=== PATIENT | male | born 1955 | race Caucasian/White ===

== ENCOUNTER → 2019-04-14 10:27 | Outpatient (CLI) | payer BC, SELFPAY ==
[2019-04-14 10:54] LABS: Basophils % 0.5 % (0.1-2.0); Eosinophils # 0.2 K/mm3 (0.0-0.4); Eosinophils % 2.8 % (0.1-12.0); Hemoglobin 15.8 g/dL (14.1-18.0); Lymphocytes # 1.6 K/mm3 (0.7-4.5); Lymphocytes % 25.1 % (10-50); Mean Corpuscular Hemoglobin 30.7 pg (27.0-31.2); Mean Platelet Volume 9.6 fl (7.4-10.4); Monocytes # 0.3 K/mm3 (0.1-1.0); Neutrophils # 4.1 K/mm3 (1.8-7.8); Neutrophils % 66.7 % (37.0-80.0); Platelet Count 146 K/mm3 (142-424); Red Blood Count 5.16 M/mm3 (4.60-6.20); Red Cell Distribution Width 13.6 % (11.5-17.5); White Blood Count 6.2 K/mm3 (4.8-10.8)
[2019-04-14 13:18] LABS: Alanine Aminotransferase 26 U/L (12-78); Albumin Level 3.9 gm/dL (3.4-5.0); Albumin/Globulin Ratio 1.1 (1.1-1.8); Alkaline Phosphatase 143 U/L (46-116); Anion Gap 10.9 mEq/L (5-15); Aspartate Amino Transferase 16 U/L (15-37); Bilirubin,Total 0.6 mg/dL (0.2-1.0); Blood Urea Nitrogen 20 mg/dL (7-18); Calcium 8.5 mg/dL (8.5-10.1); Carbon Dioxide 28 mmol/L (21.0-32.0); Chloride 104 mmol/L (98-107); Cholesterol 120 mg/dL (140-200); Creatinine,Serum 1.62 mg/dL (0.70-1.30); Estimated Glomerular Filt Rate 43 ml/min (>60); GFR (African American) 53 ML/MIN (>60); Globulin 3.7 gm/dl (1.3-3.2); Glucose 91 mg/dL (74-106); HDL Cholesterol 24 mg/dL (27-67); LDL Cholesterol 54 mg/dL (0-130); Potassium 4.9 mmoL/L (3.5-5.1); Prostate Specific Ag Screen 1.7 ng/mL (0.0-4.0); Sodium 138 mmol/L (136-145); Thyroid Stimulating Hormone 2.08 uIU/ml (0.358-3.740); Total Protein,Serum 7.6 gm/dL (6.4-8.2); Triglycerides 212 mg/dL (30-200); VLDL Cholesterol 42 mg/dL (0-40)
[2019-04-15 08:19] LABS: Vitamin B12 757 pg/mL (232-1245); Vitamin D 25 Hydroxy 34.1 ng/mL (30.0-100.0)
== END ==
PROVIDERS: Visit Provider Nurse Practitioner Family
DX: Z00.00 Encounter for general adult medical examination without abnormal findings (principal); R31.9 Hematuria, unspecified; E78.1 Pure hyperglyceridemia; E53.8 Deficiency of other specified B group vitamins; Z86.39 Personal history of other endocrine, nutritional and metabolic disease
CPT/HCPCS: 36415; 80053; 80061; 82607; 82652; 84443; 85025; G0103

== ENCOUNTER → 2019-07-15 12:39 | Outpatient (CLI) | payer BC, SELFPAY ==
--- NOTE | 2019-07-15 12:44 | US_ITS ---
PROCEDURE: US KIDNEY CLINICAL INDICATION: RENAL INSUFFICIENCY Microscopic hematuria COMPARISON: No exams were available for comparison FINDINGS: The right kidney is [id number]. No hydronephrosis, cortical thinning, or renal mass or perinephric fluid collection is evident. The left kidney is [id number]. There is mild left hydronephrosis with cortical thinning of the left kidney. Hyperechoic foci noted in the mid lower pole on the consistent nephrolithiasis IMPRESSION: Mild left hydronephrosis with nephrolithiasis. The left ureter is not identified and may be better evaluated with CT if clinically warranted Dictated by: Lobito Ochoa MD 07/15/2019 18:11 Electronically signed by Lobito Ochoa MD in [facility] 07/15/2019 18:11
== END ==
PROVIDERS: PCP Internal Medicine Adolescent Medicine; Visit Provider Nurse Practitioner Family
DX: N28.9 Disorder of kidney and ureter, unspecified (principal)
CPT/HCPCS: 76770

== ENCOUNTER 2019-11-24 09:26 | Emergency (ER) | payer BC, SELFPAY ==
[2019-11-24 09:29] VITALS: BP 157/73; PULSE 101; RESP 18; TEMP 38.7; O2SAT 90; BMI 25.8
[2019-11-24 09:51] VITALS: BMI 25.8
--- NOTE | 2019-11-24 09:52 | XR_ITS ---
PROCEDURE: XR CHEST PORTABLE CLINICAL HISTORY: WEAKNESS, FEVER COMPARISON: No exams were available for comparison FINDINGS: The cardiomediastinal silhouette and pulmonary vascularity are within normal limits. The lungs are clear without infiltrates, suspicious nodules, or pleural effusions. There is a right IJ MediPort catheter present with tip in the region of the SVC. No acute bony findings. IMPRESSION: No acute findings. Dictated by: Lobito Ochoa MD 11/24/2019 10:43 Electronically signed by Lobito Ochoa MD in [facility] 11/24/2019 10:43
--- NOTE | 2019-11-24 09:54 | [facility].EDGENADL ---
ED Disposition Clinical Impression: Fever Qualifiers: Fever type: unspecified Qualified Code(s): R50.9 - Fever, unspecified Altered mental status Qualifiers: Altered mental status type: somnolence Qualified Code(s): R40.0 - Somnolence Disposition: Home, Self-Care Condition on Discharge: Fair Instructions: DI for Fever (Symptom) -- Adult Additional Instructions: Stop 50 mcg fentanyl patch. Levaquin as prescribed. Continue Tylenol for fever. See Dr. Beyer in the office at next scheduled appointment. Return to the emergency room if worsening symptoms. Prescriptions: levoFLOXacin [Levaquin 500mg tab] 500 mg PO DAILY #10 tab Prescription Printed Referrals: Matt Pruitt MD [Primary Care Provider] - - Critical Care Critical Care Time: No Attestation: On 11/24/19, the high probability of a clinically significant, sudden or life threatening deterioration of the following system(s) required my full and direct attention, intervention and personal management. The time I documented below is in addition to time spent performing reported procedures but includes the following listed in this critical care notation. Medical Decision Making - Karl Inquiry Pt receiving controlled substance: No Vital Signs: 11/24/19 09:29 11/24/19 10:34 11/24/19 10:58 Temperature 101.7 F H 101.2 F H Temperature Source Oral Oral Pulse Rate [Left Radial] 101 H 100 H Respiratory Rate 18 Blood Pressure [Right Arm] 157/73 H 137/87 122/78 Blood Pressure Mean [Right Arm] 101 103 92 Blood Pressure Position [Right Arm] Sitting Sitting 02 Sat by Pulse Oximetry 90 L 98 Oxygen Delivery Method Room Air Nasal Cannula Oxygen Flow Rate (LPM) 2 - Lab Data Lab Results 11/24/19 09:45: WBC 2.8 L, RBC 4.07 L, Hgb 11.7 L, Hct 35.1 L, MCV 86.2, MCH 28.7, MCHC 33.2, RDW 14.2, Plt Count 379, MPV 7.6, Neut % (Auto) 71.0, Lymph % (Auto) 21.2, [place] % (Auto) 6.0, Eos % (Auto) 1.0, Baso % (Auto) 0.8, Neut # (Auto) 2.0, Lymph # (Auto) 0.6 L, [place] # (Auto) 0.2, Eos # (Auto) 0.0, Baso # (Auto) 0.0 11/24/19 09:45: Sodium 138, Potassium 4.7, Chloride 104, Carbon Dioxide 27, Anion Gap 11.7, BUN 32 H, Creatinine 1.50 H, Estimated Creat Clear 59, Estimated GFR 47 L, Est GFR ( Amer) 57 L, Glucose 112 H, Calcium 8.7, Troponin I 0.05 H 11/24/19 09:45: Lactate 1.5 11/24/19 09:45: Total Bilirubin 0.5, Direct Bilirubin 0.2, Conjugated Bilirubin 0.0, Indirect Bilirubin 0.3, Unconjugated Bilirubin 0.2, AST 26, ALT 23, Alkaline Phosphatase 264 H, Total Protein 7.4, Albumin 3.7 11/24/19 10:27: Urine Color Dk yellow, Urine Appearance Clear, Urine pH 5.5, Ur Specific [place] >= 1.030, Urine Protein Negative, Urine Glucose (UA) Negative, Urine Ketones Negative, Urine Blood Trace-i, Urine Nitrate Negative, Urine Bilirubin Negative, Urine Urobilinogen 0.2, Ur Leukocyte Esterase Negative, Urine RBC 5-10, Urine WBC 5-10, Ur Squamous Epith Cells Occasional, Urine Bacteria Trace, Hyaline Casts Occasional, Urine Mucus 1+ Result diagrams: 11/24/19 09:45 11/24/19 09:45 Orders (Tests/Meds): ED MEDICATIONS Generic Name Dose Route Start Last Admin Trade Name Freq PRN Reason Stop Dose Admin Levofloxacin/Dextrose 500 mg in 100 mls @ 100 mls/hr 11/24/19 11:35 Levaquin 500mg/100ml Premix IV 11/24/19 12:34 ONCE ONE Protocol Discontinued Medications Generic Name Dose Route Start Last Admin Trade Name Freq PRN Reason Stop Dose Admin Acetaminophen 1,000 mg 11/24/19 09:56 11/24/19 10:04 Tylenol 500mg Tablet PO 11/24/19 09:57 1,000 mg ONCE ONE Administration Sodium Chloride 1,000 mls @ 999 mls/hr 11/24/19 10:00 11/24/19 10:03 Sod Chlor 0.9% 1000ml Bag IV 11/24/19 11:00 999 mls/hr .Q1H1M STEVEN Administration Ondansetron HCl 4 mg 11/24/19 09:56 11/24/19 10:03 Zofran 4mg/2ml Vial IV 11/24/19 09:57 4 mg ONCE ONE Administration ORDERS Category Date Time Status SARS-CoV-2, ASH[facility] Stat Lab 11/24/19 11:11 Ordered
[2019-11-24 10:06] LABS: Basophils % 0.8 % (0.1-2.0); Chloride 104 mmol/L (98-107); Hematocrit 35.1 % (42.0-52.0); Hemoglobin 11.7 g/dL (14.1-18.0); Lymphocytes # 0.6 K/mm3 (0.7-4.5); Lymphocytes % 21.2 % (10-50); Mean Corpuscular HGB Conc 33.2 g/dL (31.8-35.4); Mean Corpuscular Hemoglobin 28.7 pg (27.0-31.2); Mean Corpuscular Volume 86.2 fl (80-94); Mean Platelet Volume 7.6 fl (7.4-10.4); Monocytes # 0.2 K/mm3 (0.1-1.0); Platelet Count 379 K/mm3 (142-424); Potassium 4.7 mmoL/L (3.5-5.1); Red Blood Count 4.07 M/mm3 (4.60-6.20); Red Cell Distribution Width 14.2 % (11.5-17.5); Sodium 138 mmol/L (136-145); White Blood Count 2.8 K/mm3 (4.8-10.8)
[2019-11-24 10:08] LABS: Bilirubin,Unconjugated 0.2 mg/dL (0.0-1.1)
[2019-11-24 10:09] LABS: Alanine Aminotransferase 23 U/L (12-78); Albumin Level 3.7 g/dl (3.5-5.0); Alkaline Phosphatase 264 U/L (38-126); Anion Gap 11.7 mEq/L (5-15); Aspartate Amino Transferase 26 U/L (17-59); Bilirubin,Direct 0.2 mg/dl (0.0-0.4); Bilirubin,Indirect 0.3 mg/dL (0.0-0.9); Bilirubin,Total 0.5 mg/dl (0.2-1.3); Blood Urea Nitrogen 32 mg/dl (9-20); Carbon Dioxide 27 mmol/L (22.0-30.0); Creatinine Clearance Estimated 59 mL/min (50-200); Estimated Glomerular Filt Rate 47 ml/min (>60); GFR (African American) 57 ML/MIN (>60); Total Protein,Serum 7.4 g/dl (6.3-8.2)
[2019-11-24 10:10] LABS: Calcium 8.7 mg/dl (8.4-10.2); Glucose 112 mg/dl (74-100); Lactic Acid 1.5 mmol/L (0.7-2.1)
--- NOTE | 2019-11-24 10:13 | CT_ITS ---
PROCEDURE: CT HEAD/BRAIN WO CON CLINICAL INDICATION: AMS Altered mental status, altered level of consciousness, confusion, disorientation COMPARISON: No exams were available for comparison TECHNIQUE: Axial images obtained. All CT scans at the facility use one or more dose reduction, viz: automated exposure control, ma/kV adjustment per patient size (including targeted exams where dose is matched to indication, i.e. head), or iterative reconstruction technique. FINDINGS: No midline shift, mass effect, intracranial hemorrhage, hydrocephalus, or extra-axial fluid collection is evident. The calvarium has an unremarkable appearance. No mastoid effusion. No sinus air-fluid level. IMPRESSION: No acute intracranial finding Dictated by: Lobito Ochoa MD 11/24/2019 10:40 Electronically signed by Lobito Ochoa MD in [facility] 11/24/2019 10:40
[2019-11-24 10:21] LABS: Troponin I 0.05 ng/ml (0.00-0.034)
--- NOTE | 2019-11-24 10:28 | PC.NURSE ---
PT GOING TO CT VIA W/C
[2019-11-24 10:34] VITALS: BP 137/87
[2019-11-24 10:38] LABS: Microscopic, Urine URINE MICROSCOPIC (MICROSCOPIC)
--- NOTE | 2019-11-24 10:45 | ECG_ITS ---
APPROVED REPORT Exam: Resting ECG HR:86 bpm ECG Measurements Heart Rate 86 AXES ME 106 P 40 QRSd 82 QRS -8 QT 342 T 46 QTc 409 <Conclusion> Sinus rhythm with short ME with premature atrial complexes Otherwise normal ECG Electronically signed by : Matt Pruitt, 11/24/2019 16:55:10
[2019-11-24 10:54] LABS: Appearance,Urine CLEAR (Clear); Bilirubin,Urine Negative (Negative); Blood, Urine TRACE-I (Negative); Color,Urine DK YELLOW (Yellow); Glucose,Urine (UA) Negative (Negative); Ketones,Urine Negative (Negative); Leukocyte Esterase,Urine Negative (Negative); Nitrate,Urine Negative (Negative); PH,Urine 5.5 (5.0-8.5); Protein,Urine Negative (Negative); Specific Gravity, Urine >= 1.030 (1.005-1.030); Urobilinogen,Urine 0.2 EU/dl (0.2)
[2019-11-24 10:58] VITALS: BP 122/78; PULSE 100; TEMP 38.4; O2SAT 98
[2019-11-24 11:08] LABS: Bacteria,Urine Trace /lpf; Hyaline Casts,Urine Occasional #/lpf (0); Mucus,Urine 1+ /lpf; Squamous Epithelial Cell,Urine Occasional #/hpf (0-5)
--- NOTE | 2019-11-24 11:31 | PC.NURSE ---
dr soni speaking with dr cummins
[2019-11-24 13:29] VITALS: BP 111/61; PULSE 78; RESP 16; TEMP 36.9; O2SAT 97
[2019-11-26 06:12] LABS: Covid-19 Nasal PCR Sendout Lex Not Detected
== END 2019-11-24 13:32 | disposition home or self-care (01) ==
PROVIDERS: Emergency Provider Emergency Medicine; PCP Internal Medicine Adolescent Medicine
DX: R50.9 Fever, unspecified (principal); C64.9 Malignant neoplasm of unspecified kidney, except renal pelvis; C79.51 Secondary malignant neoplasm of bone; Z87.442 Personal history of urinary calculi; K21.9 Gastro-esophageal reflux disease without esophagitis; Z90.09 Acquired absence of other part of head and neck
CPT/HCPCS: 70450; 71045; 80048; 80076; 81001; 83605; 84484; 85025; 87040; 93005; 96365; 96367; 96375; 99284; J1642; J1956; J2405; U0004